=== PATIENT | female | born 1985 ===

== ENCOUNTER 2019-06-24 14:05 | Emergency (ER) | payer MEDICAID ==
[2019-06-24] MEDS ORDERED: Ibuprofen 600 MG Tab PO ONE (15:10)
--- NOTE | 2019-06-24 15:21 | EDM.PDOC ---
Scribed by Mónica Preciado 06/24/19 1521 for Yee Hines NP ED HPI GENERAL MEDICAL PROBLEM - General Chief Complaint: Lower Extremity Injury/Pain Stated Complaint: AMBULANCE Time Seen by Provider: 06/24/19 14:30 Source of Information: Reports: Patient, EMS, EMS Notes Reviewed, RN, RN Notes Reviewed History Limitations: Reports: No Limitations - History of Present Illness INITIAL COMMENTS - FREE TEXT/NARRATIVE: Patient presented to ER per [facility] with complaint of right ankle pain. States jumped out of a pickup 2 weeks ago and hurt her right ankle/foot. States she has been walking on it for 2 weeks. Denies taking any meds for pain. Onset: Gradual Duration: Constant Location: Reports: Lower Extremity, Right Quality: Reports: Ache Severity: Mild Improves with: Reports: None Worsens with: Reports: None Associated Symptoms: Reports: No Other Symptoms right foot Pain Score (Numeric/FACES): 8 - Related Data Allergies Allergy/AdvReac Type Severity Reaction Status Date / Time No Known Allergies Allergy Verified 06/24/19 14:19 Home Meds: Home Meds . [No Known Home Meds] 06/24/19 [History] Review of Systems - Review of Systems Review Of Systems: ROS reveals no pertinent complaints other than HPI. ED EXAM, GENERAL - Physical Exam Exam: See Below Exam Limited By: No Limitations General Appearance: Alert, WD/WN, No Apparent Distress Eye Exam: Bilateral Eye: EOMI, Normal Inspection, PERRL Ears: Normal External Exam, Normal Canal, Hearing Grossly Normal, Normal TMs Nose: Normal Inspection, Normal Mucosa, No Blood Throat/Mouth: Normal Inspection, Normal Lips, Normal Teeth, Normal Gums, Normal Oropharynx, Normal Voice, No Airway Compromise Head: Atraumatic, Normocephalic Neck: Normal Inspection, Supple, Non-Tender, Full Range of Motion Respiratory/Chest: No Respiratory Distress, Lungs Clear, Normal Breath Sounds, No Accessory Muscle Use, Chest Non-Tender Cardiovascular: Normal Peripheral Pulses, Regular Rate, Rhythm, No Edema, No Gallop, No JVD, No Murmur, No Rub GI/Abdominal: Normal Bowel Sounds, Soft, Non-Tender, No Organomegaly, No Distention, No Abnormal Bruit, No Mass (Female) Exam: Deferred Rectal (Female) Exam: Deferred Back Exam: Normal Inspection, Full Range of Motion, NT Extremities: Other (right ankle decreased range of motion. No swelling. No ecchymosis. ) Neurological: Alert, Oriented, CN II-XII Intact, Normal Cognition, Normal Gait, Normal Reflexes, No Motor/Sensory Deficits Psychiatric: Normal Affect, Normal Mood Skin Exam: Warm, Dry, Intact, Normal Color, No Rash Lymphatic: No Adenopathy Course - Vital Signs Last Recorded V/S: Last Vital Signs Temp 98.0 F 06/24/19 14:10 Pulse 72 06/24/19 14:10 Resp 20 06/24/19 14:10 BP 118/74 06/24/19 14:10 Pulse Ox 99 06/24/19 14:10 - Orders/Labs/Meds Labs: Laboratory Tests 06/24/19 06/24/19 Range/Units 14:34 14:34 Urine Color Yellow (YELLOW) Urine Appearance Slightly cloudy (CLEAR) Urine pH 6.5 (5.0-9.0) Ur Specific [place] 1.025 (1.005-1.030) Urine Protein Negative (NEGATIVE) Urine Glucose (UA) Negative (NEGATIVE) Urine Ketones Negative (NEGATIVE) Urine Occult Blood Trace-intact H (NEGATIVE) Urine Nitrite Negative (NEGATIVE) Urine Bilirubin Negative (NEGATIVE) Urine Urobilinogen 0.2 (0.2-1.0) mg/dL Ur Leukocyte Esterase Negative (NEGATIVE) Urine RBC 0-5 /HPF Urine WBC 0-5 (0-5/HPF) /HPF Ur Epithelial Cells Moderate H (NOT SEEN) /HPF Amorphous Sediment Rare (NOT SEEN) /HPF Urine Bacteria Rare (0-FEW/HPF) /HPF Urine Mucus Rare (NOT SEEN) /LPF Urine HCG, Qual Negative Meds: Medications Discontinued Medications Generic Name Dose Route Start Last Admin Trade Name Freq PRN Reason Stop Dose Admin Ibuprofen 600 mg 06/24/19 15:10 06/24/19 15:14 Motrin PO 06/24/19 15:11 600 mg ONETIME ONE Administration - Radiology Interpretation Free Text/Narrative:: Right ankle xray: FINDINGS: Bones/joints: There is no evidence of acute fracture. There is no evidence of joint malalignment or dislocation. Soft tissues: There are no soft tissue masses or fluid collections. IMPRESSION: 1. No evidence of acute fracture. 2. No evidence of acute dislocation. Thank you for allowing us to participate in the care of your patient. Dictated and Authenticated by: Adonis Elizabeth DO 06/24/2019 3:16 PM Central Time ([place] & [place]) See rad report Departure - Departure Time of Disposition: 15:19 Disposition: Home, Self-Care 01 Condition: Good Clinical Impression: Sprain of ankle, right Qualifiers: Encounter type: initial encounter Involved ligament of ankle: unspecified ligament Qualified Code(s): S93.401A - Sprain of unspecified ligament of right ankle, initial encounter - Discharge Information *PRESCRIPTION DRUG MONITORING PROGRAM REVIEWED*: No *COPY OF PRESCRIPTION DRUG MONITORING REPORT IN PATIENT VANESSA: No Instructions: Ankle Sprain, [id number], Elastic Bandage and RICE Forms: ED Department Discharge Additional Instructions: Rest Elevate and ice area as tolerated May use Tylenol and/or Ibuprofen as directed for pain Follow up with your primary care facility if no improvement I have read and agree with the documentation that has been completed regarding this visit. By signing this record, I attest that the documentation was completed in my physical presence and is an accurate record of the encounter.
== END 2019-06-24 15:23 | disposition home or self-care (01) ==
LOC: DL.ED 14:05
DX: S93.401A Sprain of unspecified ligament of right ankle, initial encounter (principal); W17.89XA Other fall from one level to another, initial encounter
CPT/HCPCS: 73610; 81001; 81025; 99283; A9270